=== PATIENT | female | born 1975 ===

== ENCOUNTER → 2017-10-12 | Emergency (ER) | payer OTHER ==
[~2017-10-12] VITALS: Ht 157.5 cm; Wt 63.5 kg
[~2017-10-12] MED LIST: BACTRIM DS TAB1 EACH PO; PYRIDIUM200 MG PO; SYNTHROID88 MCG PO
== END | disposition home or self-care (01) ==
LOC: ER 08:41
DX: R30.0 Dysuria (principal); M54.5 Low back pain